=== PATIENT | female | born 1945 | race Caucasian/White ===

== ENCOUNTER → 2024-08-19 09:32 | Outpatient (REF) | payer MEDICARE, SELFPAY | LOC: REG 09:32 | PROVIDERS: ATTENDING PHYSICIAN Internal Medicine; FAMILY PHYSICIAN Family Medicine | DX: T78.1XXA Other adverse food reactions, not elsewhere classified, initial encounter (principal); R07.0 Pain in throat | CPT/HCPCS: 36415; 86003 ==